=== PATIENT | male | born 1945 | race Caucasian/White ===

== ENCOUNTER → 2018-10-30 08:01 | Outpatient (CLI) | payer OTHER ==
[2015-09-21 10:43] VITALS: BMI 29.3
[~2018-10-30 08:01] MED LIST: ASCORBIC ACID500 MG PO; B-12 DOTS500 MCG PO; BAYER CHEWABLE81 MG PO; COLACE100 MG PO; FELODIPINE ER10 MG PO; GLUCOPHAGE1000 MG PO; GLUCOTROL XL 5 M5 MG PO; HCTZ25 MG PO; HYDROCODON-ACE1 EAC7 PO; ISOSORBIDE MONO30 M1 PO; LOPRESSOR25 MG PO; NITROMIST8.5 GM SL; OMEPRAZOLE20 M1 PO; PRILOSEC20 MG PO; PRINIVIL20 MG PO; VITAMIN E400 UNI2 PO; ZOCOR20 MG PO
--- NOTE | 2018-11-01 08:42 | EC ---
PATIENT:WILVER GAY DATE OF SERVICE: 10/30/18 SEX: M MEDICAL RECORD: [id number] DATE OF : 43 [facility] AGE OF PATIENT: 73 ADMISSION DATE: 10/30/18 REFERRING PHYSICIAN: INTERPRETING PHYSICIAN: RASHEL PIERCE MD ECHOCARDIOGRAM REPORT ECHO CHARGES 4 ECHO COMPLETE Date: 10/30/18 CLINICAL DIAGNOSIS: ATRIAL FIB/TRICUSPID REGURG HX OF CAD/CABG/HTN ECHOCARDIOGRAPHIC MEASUREMENTS (adult normal given) AC root (d.<3.7cm) 4.2 cm LV Septum d (<1.2 cm> 1.6 cm Valve Excursion 1.5 cm LV Septum (systole) 1.8 cm Left Atria (s.<4.0cm> 4.4 cm LVPW d(<1.2cm) 1.6 cm RV (d.<2.3cm) 3.8 cm LVPW (sytole) 1.8 cm LV diastole(<5.6CM) 5.7 cm MV E-F(>70mm/sec) cm LV systole 4.4 cm LVOT Diameter 2.0 cm MV exc.(>10mm) 1.1 cm Est.ejection fraction (50-75%) % DOPPLER: LVIT cm/sec A 38.0 cm/sec E 109 cm/sec LA cm/sec RVSP 17 mmHg LVOT 79 cm/sec AOP1/2T m/s Asc. Ao 124 cm/sec RVOT 51 cm/sec RA cm/sec PA 109 cm/sec AV Gradient Peak 6.19 mmHg AV Mean 3.04 mmHg AV Area 2.2 cm MV Gradient Peak 4.98 mmHg MV Mean 2.31 mmHg MV Area cm COMMENTS: Retail Sales Associate Bilingual: 2 ADAMS MOMIN Crown Ironer: 3 Dr. Carrasco TAPE# PACS Pericardial Effusion N DATE OF SERVICE: Adequate 2D, color flow, spectral Doppler, and M-mode. LVH is present. LV internal dimensions are normal. Wall motion is normal. EF is greater than or equal to 55%. Aortic valve sclerosis without stenosis by Doppler interrogation. Left atrium is dilated at 4.4 cm. Mitral valve shows no prolapse. Mitral annular calcification. Rdeq-ff-[id number] MR. Right-sided chambers grossly normal. Moderate TR. TRANSINT:[id number] Voice Confirmation ID: [id number] DOCUMENT ID: [id number] ECHOCARDIOGRAM REPORT [id number] WILVER GAY,RASHEL Belcher MD at 0842 CC: [id number] DICTATION DATE: 10/31/18 1309 HOME OFFICE CLAIM SPECIALIST: 10/31/18 1329 DEP CLI 10/30/18 [place] [id number] [place] [id number]
== END | disposition home or self-care (01) ==
LOC: D.HCCARDIO 08:01
PROVIDERS: ATTEND Internal Medicine Interventional Cardiology
DX: I48.91 Unspecified atrial fibrillation (principal)